=== PATIENT | female | born 1955 | race Caucasian/White ===

== ENCOUNTER 2017-04-09 12:09 | Inpatient (IN) | payer OTHER ==
--- NOTE | ~2017-04-09 | HP ---
History And Physical [id number] [place]. [address] NAME: DARIELA VENTURA : 53 STATUS : DIS IN PAT#: [id number] AGE: 61 ADM/REG DATE : 04/09/17 MR#: [id number] REPORT SERV DATE: 04/12/17 DICTATED BY: RE MAYERS DATE: 04/09/17 REPORT STATUS : Draft TRANSCRIBED BY: MODSonia DATE: 04/09/17 DATE OF ADMISSION: 04/09/2017 HISTORY OF PRESENT ILLNESS: Ms Ventura is a 61-year-old female, who was diagnosed with IIIC ovarian cancer in April 2009. The patient underwent an exploratory laparotomy with a ZINA-BSO and staging for ovarian cancer. Since that time, the patient has been on and off chemotherapy. Her last dose of carboplatin cycle IIC was on 03/30/2017. The patient reports having severe shortness of breath and coughing. The shortness of breath and coughing has significantly increased over the past week. Denies any fever or chills. No nausea, vomiting, or abdominal pain. The patient has a history of bilateral pleural effusions and pericardial effusion in which Dr. Manuel did a bilateral VATS with talc pleurodesis and a pericardial window placement in February 2016. PAST MEDICAL HISTORY: Significant for the above mentioned ovarian cancer. PAST SURGICAL HISTORY: The above-mentioned total abdominal hysterectomy and bilateral salpingo-oophorectomy, and appendectomy as well as the VATS with talc pleurodesis and pericardial window placement. ALLERGIES: NO KNOWN DRUG ALLERGIES. FAMILY HISTORY: Negative for cancer. SOCIAL HISTORY: Negative for tobacco, alcohol, or illicit drug use. REVIEW OF SYSTEMS: As indicated in the HPI. PHYSICAL EXAMINATION: GENERAL: The patient is alert and oriented. Does appear to be short of breath. LUNGS: Clear. She does have diminished lung sounds in the right lower lobe. The patient is unable to take a deep breath related to having severe coughing spasms. HEART: Rate is tachycardic. ABDOMEN: Soft and nontender. BILATERAL LOWER EXTREMITIES: No swelling, pulses +2. ASSESSMENT AND PLAN: This is a 61-year-old female with recurrent and progressive ovarian cancer. Currently, receiving IV chemotherapy with formula of carboplatin. We will admit the patient, obtain a CTA of the chest to evaluate her shortness of breath and tachycardia. The patient may have a recurrence of her pleural effusion and pericardial effusion. Further recommendations to come after the above procedure is completed. EZRA/LIZA History And Physical [address] [address] NAME: DARIELA VENTURA : 53 STATUS : DIS IN PAT#: [id number] AGE: 61 ADM/REG DATE : 04/09/17 MR#: [id number] REPORT SERV DATE: 04/12/17 DICTATED BY: RE MAYERS DATE: 04/09/17 REPORT STATUS : Draft TRANSCRIBED BY: LIZA DATE: 04/09/17 Re Mayers NP / [id number] CC: Samuel Malave M.D.
[~2017-04-09 12:09] MED LIST: ALIMTA; ALIMTA100 MG; B COMPLETE PO; B12100T PO; CO Q-10 PO; CO Q-10100 MG PO; FOLIC PO; HARD NAILS PO; LORTAB 5/325 PO; MELATIN PO; NEUR100 PO; NORCO1 TA1 PO; SURBEX-T1 TAB PO; TAXOTERE IV; VITAMIN B 12 INJ. IV/IM; VITAMIN COMPLEX PO; VITAMIN D400 UNI1 PO; VITAMIN E PO; VITE PO; [UNRECOGNIZED DRUG - OTHER] PO
[2017-04-09 13:40] LABS: HEMOGLOBIN 12.3 g/dL (12.0-16.0); MEAN CORPUS HGB CONC 33.2 g/dL (32.0-36.0); MEAN CORPUSCULAR HEMOGLOB 32.5 pg (26.0-34.0); MEAN CORPUSCULAR VOLUME 97.9 fL (80-100); MEAN PLATELET VOLUME 9.2 fL (9.2-13.0); PLATELET COUNT 290 10/3/uL (150-400); RBC DISTRIBUTION WIDTH 17.2 % (12.0-16.0); RED CELL COUNT 3.78 10/6/uL (4.0-5.6)
[2017-04-09 13:41] LABS: MANUAL DIFF YES %; WHITE BLOOD CELLS 19.3 10/3/uL (4.5-10.5)
[2017-04-09 13:56] LABS: A/G RATIO 0.7 (0.7-1.9); ALBUMIN 3.2 G/DL (3.5-5.0); ALKALINE PHOSPHATASE 153 U/L (45-117); BUN (BLOOD UREA NITROGEN) 6 MG/DL (6-23); CHLORIDE, SERUM 101 MMOL/L (96-112); CO2 (CARBON DIOXIDE) 27 MMOL/L (24-34); CREATININE 0.56 MG/DL (0.55-1.02); GFR AFRICAN AMERICAN 116 ML/MIN (>=60); GFR NON AFRICAN AMERICAN 100 ML/MIN (>=60); GLOBULIN 4.3 G/DL (2.5-4.1); GLUCOSE, SERUM 104 MG/DL (60-99); POTASSIUM, SERUM 3.8 MMOL/L (3.5-5.3); SGOT(AST) 15 U/L (5-40); SGPT(ALT) 15 U/L (5-65); SODIUM, SERUM 136 MMOL/L (135-148); TOTAL BILIRUBIN 0.8 MG/DL (0-1.2); TOTAL PROTEIN 7.5 G/DL (6.0-8.5)
[2017-04-09 14:16] LABS: ANISOCYTOSIS 1+ (5-10/OIF) (0-5/OIF); BAND NEUTROPHILS 10 %; LYMPHOCYTES 4 %; LYMPHOCYTES ABSOLUTE (CALC) 0.77 10/3/uL (0.67-4.30); MACROCYTES 1+ (5-10/OIF) (0-5/OIF); MONOCYTES 3 %; MONOCYTES ABSOLUTE (CALC) 0.58 10/3/uL (0.21-1.20); NEUTROPHILS ABSOLUTE (CALC) 17.95 10/3/uL (2.02-8.40); PLATELET ESTIMATE ADQ (ADEQUATE); SEGMENTED NEUTROPHIL (0) 83 %; TOTAL NUCLEATED CELLS 100; TOXIC GRANULATION 2+
[2017-04-09] MEDS ORDERED: CARBOPLATIN150 MG IV (17:11)
[2017-04-09] MEDS ORDERED: CARBOPLATIN IV (22:10)
[2017-04-09] MEDS ORDERED: NEUR100 PO (22:11)
[2017-04-10 06:27] LABS: HEMOGLOBIN 10.4 g/dL (12.0-16.0); MEAN CORPUS HGB CONC 32.5 g/dL (32.0-36.0); MEAN CORPUSCULAR HEMOGLOB 32.1 pg (26.0-34.0); MEAN CORPUSCULAR VOLUME 98.8 fL (80-100); MEAN PLATELET VOLUME 8.9 fL (9.2-13.0); PLATELET COUNT 245 10/3/uL (150-400); RBC DISTRIBUTION WIDTH 16.7 % (12.0-16.0); RED CELL COUNT 3.24 10/6/uL (4.0-5.6)
[2017-04-10 06:30] LABS: MANUAL DIFF YES %
[2017-04-10 06:45] LABS: BUN (BLOOD UREA NITROGEN) 6 MG/DL (6-23); CALCIUM, SERUM 8.3 MG/DL (8.5-10.4); CHLORIDE, SERUM 107 MMOL/L (96-112); CO2 (CARBON DIOXIDE) 25 MMOL/L (24-34); CREATININE 0.46 MG/DL (0.55-1.02); GFR AFRICAN AMERICAN 124 ML/MIN (>=60); GFR NON AFRICAN AMERICAN 107 ML/MIN (>=60); GLUCOSE, SERUM 96 MG/DL (60-99); POTASSIUM, SERUM 3.8 MMOL/L (3.5-5.3); SGOT(AST) 6 U/L (5-40); SGPT(ALT) 11 U/L (5-65); SODIUM, SERUM 140 MMOL/L (135-148); TOTAL BILIRUBIN 0.9 MG/DL (0-1.2)
[2017-04-10 06:47] LABS: A/G RATIO 0.8 (0.7-1.9); ALBUMIN 2.4 G/DL (3.5-5.0); ALKALINE PHOSPHATASE 106 U/L (45-117); GLOBULIN 3.1 G/DL (2.5-4.1); TOTAL PROTEIN 5.5 G/DL (6.0-8.5)
[2017-04-10 08:14] LABS: BAND NEUTROPHILS 17 %; LYMPHOCYTES 5 %; MONOCYTES 2 %; MONOCYTES ABSOLUTE (CALC) 0.32 10/3/uL (0.21-1.20); NEUTROPHILS ABSOLUTE (CALC) 14.88 10/3/uL (2.02-8.40); PLATELET ESTIMATE ADQ (ADEQUATE); RBC MORPHOLOGY NORM (NORMAL); SEGMENTED NEUTROPHIL (0) 76 %; TOTAL NUCLEATED CELLS 100
[2017-04-10 08:15] LABS: TOXIC GRANULATION 2+
[2017-07-01] MEDS ORDERED: ZEJULA100 MG PO (14:36)
[2017-07-01] MEDS ORDERED: HARD NAILS PO (14:37)
== END 2017-04-10 14:40 | disposition home or self-care (01) | DRG 315 ==
LOC: 4EA 12:09
PROVIDERS: Obstetrics & Gynecology Gynecologic Oncology
PROC: 0W9D3ZZ Drainage of Pericardial Cavity, Percutaneous Approach (ICD-10-PCS; principal; 2017-04-09)
PROC: 0W993ZZ Drainage of Right Pleural Cavity, Percutaneous Approach (ICD-10-PCS; 2017-04-09)
DX: I31.3 Pericardial effusion (noninflammatory) (principal); J90 Pleural effusion, not elsewhere classified; C56.9 Malignant neoplasm of unspecified ovary; Z98.890 Other specified postprocedural states; R00.0 Tachycardia, unspecified; I25.10 Atherosclerotic heart disease of native coronary artery without angina pectoris
CPT/HCPCS: 49405; 71275; 80053; 85025; A9270-GY; C1729; C1769; J1170; J2250; J2405; J3010; Q9967